=== PATIENT | male | born 1930 | race Hispanic/Latino ===

== ENCOUNTER 2016-09-05 10:39 | Outpatient (CLI) | payer OTHER | END 2016-09-05 19:30 | disposition home or self-care (01) | LOC: RAD 10:39 | DX: M25.561 Pain in right knee (principal) ==

== ENCOUNTER 2016-10-21 16:03 | Inpatient (IN) | payer OTHER ==
[~2016-10-21] VITALS: Ht 180.3 cm; Wt 74.9 kg
[2016-10-21 17:42] LABS: POTASSIUM 3.7 mmol/L (3.6-5.2)
[2016-10-21 17:43] LABS: PLATELET COUNT 200 K/uL (142-355)
[2016-10-21 18:20] VITALS: BP 105/72; TEMP 97.8; Ht 180.3 cm; Wt 74.9 kg
[2016-10-21] MEDS ORDERED: ATEN25TA21 PO (18:43)
[2016-10-21] MEDS ORDERED: LISI5TAB10 PO (18:44)
[2016-10-21] MEDS ORDERED: DONE5TAB PO (18:48)
[2016-10-21] MEDS ORDERED: DOCU100C10 PO (18:49)
[2016-10-21] MEDS ORDERED: BISACODYL5 M1 PO (18:51)
[2016-10-21] MEDS ORDERED: AMLO2.5T PO (18:58)
[2016-10-21] MEDS ORDERED: GABA300C2 PO (18:59)
[2016-10-21] MEDS ORDERED: SIMV40TA57 PO (19:00)
[2016-10-21] MEDS ORDERED: ISOS60TA6 PO (19:02)
[2016-10-21] MEDS ORDERED: NITROSTAT0.4 MG SL (19:03)
[2016-10-21 20:00] VITALS: BP 94/49; TEMP 98.7
[2016-10-22] VITALS: BP 103/57; TEMP 98
--- NOTE | 2016-10-22 01:20 | NUR ---
10/21/16 AT 0. PT CAN NOT SEE WELL HE STATES, PLACED RAISED AREA OF TAPE OVER [employer]ESS[employer] LIGHT THAT CALLS THE NURSE'S STATION AND PT INSTRUCTED ON HOW TO USE IT, RETURNED DEMENSTRATION WITH NO PROBLEMS.
[2016-10-22 04:00] VITALS: BP 114/51; TEMP 98.4
[2016-10-22 04:50] LABS: PLATELET COUNT 167 K/uL (142-355)
[2016-10-22 08:00] VITALS: BP 148/70; TEMP 97.4
[2016-10-22 12:00] VITALS: BP 150/56; TEMP 98.1
[2016-10-22 16:00] VITALS: BP 166/76; TEMP 98.2
[2016-10-22 20:00] VITALS: BP 134/75; TEMP 97.9
[2016-10-23] VITALS: BP 140/54; TEMP 97.6
--- NOTE | 2016-10-23 02:18 | NUR ---
FOUND PT WALKING IN HALLWAY WITH BLOOD DRIPPING FROM IV. PT HAD TORN IV TUBING IN HALF. PT DISORIENTED, DID NOT KNOW NAME, LOCATION OR TIME. PT WAS ESCORTED BACK TO ROOM AND REORIENTED. NEW TUBING PRIMED AND PT RECONNECTED TO FLUIDS. BED LINENS AND GOWN CHANGED AT THIS TIME. BED IS LOCKED AND IN LOWEST POSITION WITH SIDE RAILS UP X2. CALL [facility] IS WITHIN REACH. WILL CONTINUE TO MONITOR.
--- NOTE | 2016-10-23 03:45 | NUR ---
PT FOUND WALKING THE HALLS. IV TUBING TORN IN HALF. PT DISORIENTED. PT DOESN'T KNOW NAME OR LOCATION. PT WAS ESCORTED BACK TO ROOM AT THIS TIME AND REORIENTED. SALINE LOCKED PT AT THIS TIME. BED IS LOCKED AND IN LOWEST POSITION WITH SIDE RAILS UP X2. BED ALARM IS IN USE. WILL CONTINUE TO MONITOR.
[2016-10-23 04:00] VITALS: BP 166/92; TEMP 98.2
[2016-10-23 05:19] LABS: PLATELET COUNT 168 K/uL (142-355)
[2016-10-23 05:29] LABS: POTASSIUM 3.3 mmol/L (3.6-5.2); SODIUM 139 mmol/L (136-145)
[2016-10-23 08:00] VITALS: BP 157/84; TEMP 97.8
[2016-10-23 12:00] VITALS: BP 113/69; TEMP 98
[2016-10-23 15:57] VITALS: BP 102/65; TEMP 97.8
[2016-10-23 20:28] VITALS: BP 105/60; TEMP 97.7
[2016-10-24] VITALS: BP 124/78; TEMP 97.9
[2016-10-24 04:00] VITALS: BP 132/82; TEMP 97.8
--- NOTE | 2016-10-24 04:52 | NUR ---
PT REFUSED TO HAVE MORNING LABS DRAWN AT THIS TIME.
[2016-10-24 08:00] VITALS: BP 176/62; TEMP 97.6
[2016-10-24 09:29] LABS: PLATELET COUNT 158 K/uL (142-355)
[2016-10-24 09:52] LABS: POTASSIUM 4.3 mmol/L (3.6-5.2); SODIUM 138 mmol/L (136-145)
[2016-10-24 12:00] VITALS: BP 127/76; TEMP 97.9
--- NOTE | 2016-10-24 16:43 | NUR ---
1645 DISCHARGE INSTRUCTIONS GIVEN TO PT'S DAUGHTER. BOTH VERBALZIED UNDERSTANDING. ALL MEDS CALLED INTO [facility] PER DR CAMPA'S RECOMMENDATIONS. NAMENDA 5MG ONE PO EVERY NIGHT; ARICEPT 10MG TAKE ONE TAB EVERY NIGHT; LEXAPRO 5MG TAKE ONE TAB EVERY NIGHT; RISPERDAL 0.25MG TAKE ONE TAB EVERY DAY AT 1800. 1650 PT LEFT WITH FAMILY VIA WC. NO ACUTE DISTRESS NOTED
== END 2016-10-24 16:45 | disposition home or self-care (01) | DRG 57 ==
LOC: MED/SURG 16:03
PROVIDERS: Emergency Medicine; ADMIT Nurse Practitioner
DX: G30.8 Other Alzheimer's disease (principal); F02.81 Dementia in other diseases classified elsewhere, unspecified severity, with behavioral disturbance; R41.82 Altered mental status, unspecified; E86.0 Dehydration; R53.1 Weakness; Z86.73 Personal history of transient ischemic attack (TIA), and cerebral infarction without residual deficits
CPT/HCPCS: 36415; 36591; 80053; 81000; 82607; 82746; 83735; 84443; 85027; 85610; 96360; 96361; 96372; J1650; J3475

== ENCOUNTER 2017-02-03 10:39 | Emergency (ER) | payer OTHER ==
[~2017-02-03] VITALS: Ht 175.3 cm; Wt 72.6 kg
[2017-02-03 10:35] VITALS: TEMP 98
[~2017-02-03 10:39] MED LIST: AMLO2.5T PO; ATEN25TA21 PO; BISACODYL5 M1 PO; DOCU100C10 PO; DONE5TAB PO; GABA300C2 PO; ISOS60TA6 PO; LISI5TAB10 PO; NITROSTAT0.4 MG SL; SIMV40TA57 PO
[2017-02-03] MEDS ORDERED: ESCITALOPRAM5 MG PO (10:50)
[2017-02-03] MEDS ORDERED: MEMA5TAB PO (10:50)
[2017-02-03] MEDS ORDERED: LUBI24CA PO (10:50)
[2017-02-03] MEDS ORDERED: RISP0.25 PO (10:51)
[2017-02-03] MEDS ORDERED: DONE5TAB PO (10:52)
[2017-02-03] MEDS ORDERED: RYTARY 23.75-951 CAP PO (10:52)
[2017-02-03 11:42] LABS: PLATELET COUNT 189 K/uL (142-355)
[2017-02-03 17:00] VITALS: BP 128/78
== END 2017-02-03 18:22 | disposition other institution (70) ==
LOC: ED 10:39
PROVIDERS: Emergency Medicine
DX: F03.90 Unspecified dementia, unspecified severity, without behavioral disturbance, psychotic disturbance, mood disturbance, and anxiety (principal)
CPT/HCPCS: 36415; 80053; 81000; 82550; 84484; 85027; 96360; 96361; 99284

== ENCOUNTER 2017-02-11 07:58 | Emergency (ER) | payer OTHER ==
[~2017-02-11] VITALS: Ht 182.9 cm; Wt 69.9 kg
[2017-02-11 07:53] VITALS: TEMP 98
[~2017-02-11 07:58] MED LIST changes: +ESCITALOPRAM5 MG PO; +LUBI24CA PO; +MEMA5TAB PO; +RISP0.25 PO; +RYTARY 23.75-951 CAP PO
[2017-02-11 09:03] LABS: PLATELET COUNT 108 K/uL (142-355); POTASSIUM 4.7 mmol/L (3.6-5.2)
[2017-02-11 09:45] LABS: PARTIAL THROMBOPLASTIN TIME 24.5 SECONDS (24.5-33.6)
[2017-02-11 10:44] VITALS: BP 102/57
== END 2017-02-11 10:46 | disposition short-term general hospital (02) ==
LOC: ED 07:58
PROVIDERS: Emergency Medicine
DX: I21.4 Non-ST elevation (NSTEMI) myocardial infarction (principal)
CPT/HCPCS: 36415; 80053; 81000; 83605; 84443; 84484; 85027; 85610; 85730; 93005; 96361; 96365; 96366; 96374; 96375; 99285; J1644; J2690; J3490

== ENCOUNTER 2017-02-11 10:55 | Outpatient (CLI) | payer OTHER | END 2017-02-11 11:28 | disposition short-term general hospital (02) | LOC: AMB 10:55 | DX: I21.4 Non-ST elevation (NSTEMI) myocardial infarction (principal) | CPT/HCPCS: A0425; A0427 ==